=== PATIENT | male | born 1980 | race Caucasian/White ===

== ENCOUNTER 2023-09-13 16:52 | Emergency (ER) | payer MEDICARE, OTHER, SELFPAY ==
[2023-09-13 16:55] VITALS: BP 158/99
[2023-09-13 17:15] LABS: % Eosinophils 2.5 % (0-6); % Immature Granulocytes 0.4 % (0-0.5); % Monocytes 9.7 % (1.7-9.3); % Neutrophils 57.4 % (42.2-75.2); Absolute Eosinophils 0.2 10^3/uL (0-0.7); Absolute Monocytes 0.7 10^3/uL (0.1-0.6); Absolute Neutrophils 3.9 10^3/uL (1.4-6.5); Hematocrit 35.7 % (39.0-52.0); Hemoglobin 12.4 g/dL (13.0-18.0); Mean Corp Hgb Conc. 34.7 g/dL (33.0-37.0); Mean Corpuscular Hgb 28.6 pg (27.0-31.0); Mean Corpuscular Volume 82.4 fL (80.0-94.0); Mean Platelet Volume 9.9 fL (7.4-10.4); Nucleated Red Blood Cells % 0 % (-); Platelet Count 283 10^3/uL (130-400); Red Blood Cell Count 4.33 10^6/uL (4.70-6.10); White Blood Cell Count 6.8 10^3/uL (4.8-10.8)
[2023-09-13 17:45] LABS: Blood Urea Nitrogen 14 mg/dl (9-20); Calcium 8.9 mg/dl (8.4-10.2); Carbon Dioxide 25 mmol/L (22-30); Chloride 100 mmol/L (98-107); Glucose 333 mg/dl (70-99); Sodium 132 mmol/L (135-145); eGFR > 60.00
--- NOTE | 2023-09-13 23:23 | ED.SKININJ ---
HPI-Injury
General
Chief Complaint: Wound Check/Suture Removal
Source: patient
Exam Limitations: none
Time Seen by Provider: 09/13/23 17:02
Nursing documentation reviewed up to this point in time: agreed with
Travel History
Have you had any contact with someone who has COVID-19?: No
Do you have any symptoms of coronavirus? Fever > 100 degrees, chills, cough, shortness of breath, sore throat, loss of taste or smell, muscle aches, or headache?: No
History of Present Illness-Injury
Is this injury a work related problem?: No
Is pt an associate of [facility]?: No
Initial Injury comments:
Patient to ED for wound assessment. 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 He has a nonhealing wound to right dorsal wrist and thumb due to his IV drug use. Was scheduled for surgery but was arrested and sent to skilled nursing 3 weeks ago. States
today the wound hurts Brought to ED by guards for eval. No fever/chills.
Past History
Past History
ED Past Medical History: IDDM
ED Past Surgical History: None
Social History
Tobacco: Non-smoker
Alcohol: None
Drug: Narcotics and IVDA
Living: skilled nursing (Work release program )
Employment: Employed
Review of Systems
Review of Systems
Allergies reviewed?: Yes
All Other Systems: ROS reviewed and negative except as documented in HPI and ROS
Constitutional: Reports no symptoms
EENT: Reports no symptoms
Respiratory: Reports no symptoms
Cardiac: Reports no symptoms
ABD/GI: Reports no symptoms
Musculoskeletal: Reports no symptoms
Skin: Reports other (non healing wound to right dorsal wrist and right thubm)
Neurological: Reports no symptoms
Psychiatric: Reports no symptoms
Phy Exam
General Physical Exam
General Presentation: well appearing
General age: appears stated age
General Skin: warm and dry
General Habitus: normal
Musculoskeletal Exam
Musculoskeletal Exam: neuro vasc intact
Skin Exam
Skin Exam: normal color, warm/dry and other (3cm vertical wound to right dorsal wrist. No redness. Minimal swelling, minimal bloody discharge. Neurovascularly intact.)
Psychiatric Exam
Psychiatric Exam: normal mood/affect
Course
Orders/Labs/Results
Orders:
Orders
09/13/23 17:00
IV Insert/Care/Rem.- Treatment PRN
09/13/23 17:04
Basic Metabolic Panel Urgent
Complete Blood Count/With Diff Urgent
Blood Culture Q30M
JUAN J Source: Blood/Venous
Specimen Description:
Comment: FROM 2 SEPARATE SITES
Abnormal Lab Results
09/13/23
17:04
RBC 4.33 L 10^6/uL
(4.70-6.10)
Hgb 12.4 L g/dL
(13.0-18.0)
Hct 35.7 L %
(39.0-52.0)
Absolute Monos (auto) 0.7 H 10^3/uL
(0.1-0.6)
Monocytes % 9.7 H %
(1.7-9.3)
Sodium 132 L mmol/L
(135-145)
Creatinine 0.5 L mg/dL
(0.7-1.3)
Glucose 333 H mg/dl
(70-99)
09/13/23 17:04
09/13/23 17:04
Vital Signs
Initial and Last Documented VS:
Initial Vital Signs
Temp Pulse Resp BP Pulse Ox
98 F 103 18 158/99 100
09/13/23 16:55 09/13/23 16:55 09/13/23 16:55 09/13/23 16:55 09/13/23 16:55
Last Documented Vital Signs
Temp Pulse Resp BP Pulse Ox
98 F 103 18 158/99 100
09/13/23 16:55 09/13/23 16:55 09/13/23 16:55 09/13/23 16:55 09/13/23 16:55
*Critical Care Note
Total Time (30-74mins, 75-104mins- exclusive of procedures): Not Applicable
Update Note
Update Note:
Patient to ED from skilled nursing for wound check to right dorsal wrist. No s/s infection on exam today. WIll recommend bid wound care. Place on antibiotic prophylactically, recommend ortho follow up. Patient now states that the skilled nursing has surgery
scheduled for him but he does not knwo the date or with whom. Will discharge back to skilled nursing. Given number for ortho follow up, s/s to return to ED.
ED Attending Note
-
Portions of this chart may have been created with voice recognition software.� Occasional wrong word or��sound alike� substitutions may have occurred due to the inherent limitations of voice recognition software.
Discharge Plan
Departure
Patient Disposition: [facility]
Date of Disposition: 09/13/23
Time of Disposition: 17:59
Patient with high blood pressure during this ER visit?: No
Condition: Good
Covid-19: Not Applicable
Discharge Problem:
WRIST WOUND
Instructions: Wound Care (DC)
Prescriptions:
New
doxycycline hyclate 100 mg capsule
100 mg PO BID Qty: 20 0RF
No Action
clonidine HCl 0.1 MG tablet
0.1 mg PO .TAPER
Rx Instructions:
08/27/2023,
0.1 mg TID x 4 days (08/25/2023 - 08/28/2023)
0.1 mg BID x 2 days (08/29/2023 - 08/30/2023)
0.05 mg BID x 2 days (08/31/2023 - 09/01/2023)
quetiapine 25 mg Tablet
25 mg PO DAILY
loperamide [Anti-Diarrheal (loperamide)] 2 mg Capsule
2 mg PO TIDPRN PRN (Reason: diarrhea)
clonazepam 1 mg Tablet
1 mg PO .TAPER
Rx Instructions:
08/27/2023,
1 mg BID x 3 days (08/25/2023 - 08/27/2023)
0.5 mg BID x 3 days (08/28/2023 - 08/30/2023)
0.5 mg QHS x 3 days (08/31/2023 - 09/02/2023)
Novolin 70/30 U-100 Insulin 100 unit/mL (70-30) Suspension
30 unit SC BID
doxycycline monohydrate 100 mg Capsule
100 mg PO BID
Rx Instructions:
08/27/2023, start date: 08/26/2023; end date: 09/05/2023.
cephalexin 500 mg Capsule
500 mg PO TID
Rx Instructions:
08/27/2023, start date: 08/26/2023; end date: 09/05/2023.
diphenhydramine HCl 25 mg Capsule
25 mg PO BID
ondansetron 4 mg Tablet,Disintegrating
4 mg PO TIDPRN PRN (Reason: nausea)
buprenorphine HCl 8 mg Tablet, Sublingual
16 mg SUBLINGUAL .TAPER
Rx Instructions:
08/27/2023,
16 mg x 2 days (08/26/2023 - 08/27/2023)
12 mg x 2 days (08/28/2023 - 08/29/2023)
8 mg x 2 days (08/30/2023 - 08/31/2023)
4 mg x 2 days (09/01/2023 - 09/02/2023)
2 mg x 2 days (09/03/2023 - 09/04/2023)
quetiapine 50 mg Tablet
50 mg PO HS
Referrals:
Giana Limon MD [Family Provider] -
Bon Kaminski MD [Active] - Next open appointment
Activity Restrictions/Additional Instructions:
Follow up with hand specialist. Return to the emergency department immediately for fever/chills, any changes in /worsening of your symptoms.
Interventions
Interventions:
*Risk Screen - Suicide Last Done: 09/13/23 16:55
*General Assessment Last Done: 09/13/23 16:55
*Neglect/Abuse Screening Last Done: 09/13/23 16:55
*ED COVID-19 Vaccine History Last Done: 09/13/23 16:55
*Nursing Disposition Last Done: 09/13/23 18:45
ED-Skin Assessment Last Done: 09/13/23 17:50
Discharge Date and Time
Discharge Date/Time: 09/13/23 18:45
== END 2023-09-13 18:45 ==
LOC: EMR 16:52
PROVIDERS: EMERGENCY PHYSICIAN Student in an Organized Health Care Education/Training Program; FAMILY PHYSICIAN General Practice
DX: S60.911A Unspecified superficial injury of right wrist, initial encounter (principal); X58.XXXA Exposure to other specified factors, initial encounter
CPT/HCPCS: 99283; 80048; 85025; 87040